=== PATIENT | male | born 1995 | race Two or more races ===

== ENCOUNTER 2018-07-14 07:34 | Day surgery (SDC) | payer OTHER ==
[2018-07-14] MEDS ORDERED: DESFLURANE 240 ML BOTTLE IH ONE (07:56)
[2018-07-14] MEDS ORDERED: SEVOFLURANE 250 ML BOTTLE IH ONE (07:56)
[2018-07-14 08:28] LABS: BASOPHILS # (AUTO) 0.1 /CMM (0.0-0.2); BASOPHILS % (AUTO) 0.9 % (0.0-2.0); CREATININE 0.8 mg/dL (0.6-1.3); EOSINOPHILS % (AUTO) 1.2 % (0.0-6.0); HEMATOCRIT 44 % (39-51); LYMPHOCYTES # (AUTO) 2.4 /CMM (0.8-4.8); LYMPHOCYTES % (AUTO) 40.3 % (20.0-44.0); MEAN CORPUSCULAR HGB CONC 32 g/dl (31.0-36.0); MEAN CORPUSCULAR VOLUME 77 fL (80-96); MONOCYTES # (AUTO) 0.6 /CMM (0.1-1.30); MONOCYTES % (AUTO) 9.7 % (2.0-12.0); NEUTROPHILS # (AUTO) 2.9 /CMM (1.8-8.9); NEUTROPHILS % (AUTO) 47.9 % (43.0-81.0); PLATELET COUNT (AUTO) 271 /CMM (150-450); POTASSIUM 3.9 mmol/L (3.5-5.1); RED BLOOD CELL COUNT(AUTO) 5.68 MIL/uL (4.5-6.0)
[2018-07-14] MEDS ORDERED: MIDAZOLAM HCL 2 MG/2ML VIAL ONE (09:02)
[2018-07-14] MEDS ORDERED: METOCLOPRAMIDE HCL 10 MG/2 ML VIAL ONE (09:03)
[2018-07-14] MEDS ORDERED: FENTANYL PF 250MCG/5ML AMPUL ONE (09:03)
[2018-07-14] MEDS ORDERED: FAMOTIDINE/PF INJ 20 MG/2 ML VIAL IV ONE (09:04)
[2018-07-14] MEDS ORDERED: BUPIVACAINE 0.25% 75 MG/30 ML VIAL ONE (09:04)
[2018-07-14] MEDS ORDERED: BACITRACIN 50000 UNITS/VIAL ONE (10:34)
[2018-07-14] MEDS ORDERED: BUPIVACAINE 0.5 % PF 150 MG/30 ML VIAL ONE (11:23)
[2018-07-14] MEDS ORDERED: FENTANYL PF 100MCG/2ML AMPUL ONE (11:57)
[2018-07-14] MEDS ORDERED: CEFAZOLIN SODIUM/DEXTROSE,ISO 50 ML IV ONE (12:08)
[2018-07-14] MEDS ORDERED: HYDROCODONE/APAP 5/325MG 1 EACH TABLET ONE (12:10)
[2018-07-14] MEDS ORDERED: ONDANSETRON HCL/PF 4 MG/2 ML VIAL ONE (12:51)
== END 2018-07-14 13:10 | disposition home or self-care (01) ==
LOC: DS 07:34
PROVIDERS: ATTEND Student in an Organized Health Care Education/Training Program
DX: S52.222A Displaced transverse fracture of shaft of left ulna, initial encounter for closed fracture (principal); S52.322A Displaced transverse fracture of shaft of left radius, initial encounter for closed fracture; X58.XXXA Exposure to other specified factors, initial encounter; Y93.89 Activity, other specified; Y92.89 Other specified places as the place of occurrence of the external cause; Y99.8 Other external cause status; Z79.82 Long term (current) use of aspirin; Z79.899 Other long term (current) drug therapy
CPT/HCPCS: 25575; 36415; 73100; 80048; 85025; 85610; 85730; A6253; A6402 ×2; C1713 ×3; J0690 ×2; J1885; J2250; J2405 ×2; J2704; J2710; J2765; J3010 ×2; J3490 ×5